=== PATIENT | female | born 1975 | race Caucasian/White ===

== ENCOUNTER 2016-11-23 14:22 | Emergency (ER) | payer MEDICAID ==
[2016-11-23] MEDS ORDERED: NS 1,000 ML IV ONE (14:25)
[2016-11-23] MEDS ORDERED: IPRATROPIUM/ALBUTEROL 3 ML DEYVIAL IH ONE (14:25)
[2016-11-23] MEDS ORDERED: predniSONE 20 MG TAB PO ONE (14:25)
--- NOTE | 2016-11-23 14:26 | EDPHY ---
H & P Time Seen by Provider: 11/23/16 14:25 HPI/ROS: Chief complaint: Asthma attack History of present illness: This is a 41-year-old female who presents to the emergency department complaining of an asthma attack. Patient reports symptoms began approximately an hour and half ago. She believes they were precipitated by environmental allergies. She has a history of severe allergies. She has needed to be intubated for her asthma in the past. She denies other associated signs or symptoms including no fevers, no cold symptoms, no pain or swelling in the legs. This feels like a typical asthma exacerbation. Review of systems: A 10 point review of systems was obtained and other than described above was negative (Alfredito Crews) - Physical Exam Exam: General Appearance: Alert, appears in distress. Eyes: Pupils equal and round no pallor or injection. ENT, Mouth: Mucous membranes moist. Respiratory: Patient is not able to speak in full sentences. She is using accessory muscles. Lung sounds are diminished with diffuse wheezing. Cardiovascular: Regular rate and rhythm. Gastrointestinal: Abdomen is soft and nontender, no masses, bowel sounds normal. Neurological: Alert and oriented x4. Strength and sensation intact and symmetrical. Skin: Warm and dry, no rashes. Musculoskeletal: Neck is supple nontender. Extremities are symmetrical, full range of motion. Psychiatric: Patient is oriented X 3, there is no agitation. (Alfredito Crews) Constitutional: Initial Vital Signs Temperature (C) 36.8 C 11/23/16 14:32 Heart Rate 77 11/23/16 14:32 Respiratory Rate 16 11/23/16 14:32 Blood Pressure 144/94 H 11/23/16 14:32 O2 Sat (%) 98 11/23/16 14:32 O2 Delivery Mode Room Air O2 (L/minute) 3 Allergies/Adverse Reactions: gabapentin Allergy (Verified 11/23/16 14:31) Penicillins Allergy (Verified 11/23/16 14:31) Home Medications: Medication Instructions Recorded Albuterol Hfa Anes Only 11/23/16 Duoneb (*) 11/23/16 Qvar 11/23/16 predniSONE 60 mg PO DAILY 4 Days 11/23/16 Medical Decision Making ED Course/Re-evaluation: Patient seen in conjunction with my secondary supervising physician Dr. Evangelina Valentine. Patient presents to the emergency department for what she believes is an asthma attack. She is unwell appearing on presentation. She is immediately given a DuoNeb followed by continuous nebulizer and 60 mg of prednisone orally. She is observed in the emergency department for over 2 hours and states she is feeling much better and would like to be discharged home. We have discussed pursuing an x-ray, she has declined. She has a nebulizer at home with albuterol and is asked to continue using this. She will be placed on a course of prednisone, her last course was at least 6 months ago. She does have a primary care doctor, I have asked her to follow up this week for recheck. Strict return precautions are given. Patient voiced understanding and agreement with plan. (Alfredito Crews) I have evaluated and participated in the management of this patient. My co- signature indicates that I have reviewed this chart and that I agree with the findings and the plan of care as documented. My personal history and physical findings include: 41-year-old female with a history of reactive airway disease who presents in respiratory distress. At the time of my initial exam she is diffusely weak wheezing and sitting up in a tripod position. She is able to verbalize short phrases. A DuoNeb was immediately started in this was followed by continuous nebulized albuterol. She was given prednisone 60 mg orally. She quickly turned around and at the time of my repeat exam her lungs were clear, she was sitting up comfortably in no respiratory distress. She was able to speak in full sentences. She tells me that she has been intubated in the past because of asthma. She denies recent fever but has had an upper respiratory infection. She has not been using all of her respiratory medications but agrees to do so from here on out. She was observed in the emergency department for over 2 hours. I encouraged further observation but she was anxious to return home. At the time of her discharge her lungs were clear to auscultation and she was mentating normally. She was not hypoxic or tachypneic. (Evangelina Valentine) Differential Diagnosis: Included but not limited to asthma exacerbation, status asthmaticus, allergic reaction, infectious pathology such as pneumonia (Alfredito Crews) - Data Points Medications Given: Discontinued Medications Albuterol (Proventil Neb) 9 ml IH CONT ONE Stop: 11/23/16 14:37 Last Admin: 11/23/16 14:37 Dose: 9 ml Albuterol/Ipratropium (Duoneb) 3 ml IH EDNOW ONE Stop: 11/23/16 14:26 Last Admin: 11/23/16 14:22 Dose: 3 ml Sodium Chloride (Ns) 1,000 mls @ 0 mls/hr IV EDNOW ONE; Wide Open PRN Reason: Protocol Stop: 11/23/16 14:26 Last Admin: 11/23/16 14:35 Dose: 1,000 mls Prednisone (Prednisone) 60 mg PO EDNOW ONE Stop: 11/23/16 14:26 Last Admin: 11/23/16 14:34 Dose: 60 mg Departure - Departure Disposition: Home, Routine, Self-Care Clinical Impression: Exacerbation of asthma Condition: Good Instructions: Asthma (ED) Additional Instructions: Follow-up with her primary care doctor this week for recheck Take steroids as prescribed until finished Use your nebulizer as discussed until symptoms have abated If symptoms worsen or new symptoms develop return immediately to the emergency room Referrals: VIANCA NASCIMENTO [Other] - As per Instructions Prescriptions: predniSONE 60 mg PO DAILY 4 Days
[2016-11-23] MEDS ORDERED: ALBUTEROL 3 ML DEYVIAL ONE (14:32)
[2016-11-23] MEDS ORDERED: ALBUTEROL 3 ML DEYVIAL IH ONE (14:36)
[2016-11-23 16:23] VITALS: RESP 20; O2SAT 94
[2016-11-23 16:42] VITALS: BP 130/88; PULSE 92; TEMP 98.1
== END 2016-11-23 16:42 | disposition home or self-care (01) ==
DX: J45.901 Unspecified asthma with (acute) exacerbation (principal); E86.9 Volume depletion, unspecified